=== PATIENT | male | born 1965 | race Caucasian/White ===

== ENCOUNTER 2017-12-28 18:31 | Inpatient (IN) | payer OTHER ==
[2017-12-28 19:49] LABS: ADD MAN DIFF? NO
[2017-12-28] MEDS: morphine 4 MG/ML VIAL IV (19:50)
[2017-12-28 19:51] LABS: BASOPHIL # 0.1 10^3/ul (0.0-0.1); BASOPHILS % 0.7 % (0.0-2.0); EOSINOPHILS # 0.3 10^3/ul (0.0-0.5); EOSINOPHILS % 2.9 % (0.0-7.0); HEMATOCRIT 30.4 % (42.0-52.0); HEMOGLOBIN 10.3 g/dl (14.0-18.0); LYMPHOCYTES # 2.1 10^3/ul (0.8-2.9); LYMPHOCYTES % 24.9 % (15.0-51.0); MEAN CORPUSCULAR HEMOGLOBIN 29.1 pg (29.0-33.0); MEAN CORPUSCULAR HGB CONC 33.9 g/dl (32.0-37.0); MEAN CORPUSCULAR VOLUME 85.9 fl (82.0-101.0); MEAN PLATELET VOLUME 11.4 fl (7.4-10.4); MONOCYTE # 0.7 10^3/ul (0.3-0.9); MONOCYTES % 8.4 % (0.0-11.0); NEUTROPHIL # 5.3 10^3/ul (1.6-7.5); NEUTROPHILS % 62.6 % (39.0-77.0); PLATELET COUNT 337 10^3/UL (140-415); RED BLOOD COUNT 3.54 10^6/ul (4.70-6.10); RED CELL DISTRIBUTION WIDTH 12.3 % (11.5-14.5)
[2017-12-28 19:51] LABS: WHITE BLOOD COUNT 8.5 10^3/ul (4.8-10.8)
[2017-12-28 19:55] LABS: ADD UMIC YES; UR ASCORBIC ACID NEGATIVE (NEGATIVE); UR BACTERIA FEW /HPF (NONE SEEN); UR BILIRUBIN (Dip) NEGATIVE (NEGATIVE); UR BLOOD (Dip) 1+ mg/dL (NEGATIVE); UR CLARITY CLEAR (CLEAR); UR COLOR STRAW (YELLOW); UR GLUCOSE (Dip) 3+ mg/dL (NEGATIVE); UR KETONES (Dip) NEGATIVE (NEGATIVE); UR LEUKOCYTE ESTERASE (Dip) NEGATIVE Leu/ul (NEGATIVE); UR NITRITE (Dip) NEGATIVE (NEGATIVE); UR RBC 1 /HPF (0-5); UR TOTAL PROTEIN (Dip) 3+ mg/dl (NEGATIVE); UR UROBILINOGEN (Dip) NEGATIVE (NEGATIVE); UR WBC 1 /HPF (0-5)
[2017-12-28 20:08] LABS: ALANINE AMINOTRANSFERASE 29 IU/L (13-69); ALBUMIN 3.5 g/dl (3.3-4.9); ALKALINE PHOSPHATASE 112 IU/L (42-121); ANION GAP 13 (8-16); ASPARTATE AMINO TRANSFERASE 25 IU/L (15-46); BILIRUBIN,INDIRECT 0.3 mg/dl (0-1.1); BILIRUBIN,TOTAL 0.3 mg/dl (0.2-1.3); BLOOD UREA NITROGEN 49 mg/dl (7-20); CARBON DIOXIDE 24 mmol/L (21-31); CHLORIDE 99 mmol/L (97-110); CREATININE 4.17 mg/dl (0.61-1.24); POTASSIUM 4.7 mmol/L (3.5-5.1); SODIUM 131 mmol/L (135-144)
[2017-12-28 20:20] LABS: B-TYPE NATRIURETIC PEPTIDE 334 PG/ML (0-125); TROPONIN-I < 0.012 ng/ml (0.000-0.120)
[2017-12-28 20:35] LABS: GLUCOSE 417 mg/dl (70-220)
[2017-12-28] MEDS ORDERED: ACETAMINOPHEN 325 MG TAB PO (22:00)
[2017-12-28] MEDS ORDERED: ONDANSETRON 4 MG INJ IV (22:00)
[2017-12-28] MEDS ORDERED: BISACODYL (EC) 5 MG TAB PO (22:30)
[2017-12-28] MEDS ORDERED: DOCUSATE SODIUM 100 MG CAP PO (22:30)
[2017-12-28] MEDS ORDERED: NACL 0.9% 3 ML SYG IV (22:30)
[2017-12-28] MEDS ORDERED: HYDROCODONE/APAP (5/325) TAB PO (22:30)
[2017-12-28] MEDS ORDERED: DEXTROSE 50% 50 ML SYRINGE IV ×2 (23:30)
[2017-12-28] MEDS ORDERED: GLUCOSE GEL 15 GRAM TUBE PO ×2 (23:30)
[2017-12-28] MEDS ORDERED: GLUCAGON 1 MG INJ IM (23:30)
[2017-12-28] MEDS ORDERED: GLUCOSE GEL 15 GRAM TUBE BUCCAL (23:30)
[2017-12-28] MEDS: FUROSEMIDE 40 MG INJ IV (23:33)
[2017-12-28] MEDS: INSULIN GLARGINE [LANTus] (100 UNITS/ML) SYG SC (23:51)
[2017-12-28] MEDS: INSULIN ASPART [NOVOLOG] 3 ML PEN SC (23:52)
[2017-12-28] MEDS: hydrALAzine 20 MG INJ IV (23:53)
[2017-12-29 00:06] LABS: IRON 52 ug/dl (35-150)
[2017-12-29 00:16] LABS: % IRON SATURATION 20 % SAT (22-52); TOTAL IRON BINDING CAPACITY 263 ug/dl (241-421)
[2017-12-29] MEDS: hydrALAzine 20 MG INJ IV ×2 (01:00→07:57)
[2017-12-29] MEDS: ACCU-CHEK XX (01:53)
[2017-12-29] MEDS: SOD CHLORIDE 0.9% 1,000 ML IV ×3 (02:32→20:02)
[2017-12-29 02:38] LABS: OSMOLALITY 306 mOsm/kg (280-295)
[2017-12-29 02:56] LABS: AMYLASE 83 U/L (11-123)
[2017-12-29 02:56] LABS: LIPASE 130 U/L (23-300)
[2017-12-29 02:59] LABS: SODIUM,URINE RANDOM 80 mmol/L (30-90)
[2017-12-29 03:01] LABS: CREATININE,URINE RANDOM 58.01 mg/dl (20-370)
[2017-12-29 03:14] LABS: PROTEIN/CREAT RATIO 7.48 RATIO
[2017-12-29 03:32] LABS: OSMOLALITY,URINE 380 mOsm/kg (250-1200)
[2017-12-29 06:12] LABS: ADD MAN DIFF? NO; BASOPHILS % 0.4 % (0.0-2.0); EOSINOPHILS # 0.1 10^3/ul (0.0-0.5); EOSINOPHILS % 1.3 % (0.0-7.0); HEMOGLOBIN 9.7 g/dl (14.0-18.0); LYMPHOCYTES # 1.5 10^3/ul (0.8-2.9); LYMPHOCYTES % 16.9 % (15.0-51.0); MEAN CORPUSCULAR HEMOGLOBIN 28.5 pg (29.0-33.0); MEAN CORPUSCULAR HGB CONC 33.4 g/dl (32.0-37.0); MEAN CORPUSCULAR VOLUME 85.3 fl (82.0-101.0); MEAN PLATELET VOLUME 10.9 fl (7.4-10.4); MONOCYTE # 0.5 10^3/ul (0.3-0.9); MONOCYTES % 6.1 % (0.0-11.0); NEUTROPHIL # 6.7 10^3/ul (1.6-7.5); NEUTROPHILS % 74.9 % (39.0-77.0); PLATELET COUNT 302 10^3/UL (140-415); RED CELL DISTRIBUTION WIDTH 12.5 % (11.5-14.5)
[2017-12-29 06:12] LABS: WHITE BLOOD COUNT 8.9 10^3/ul (4.8-10.8)
[2017-12-29 06:40] LABS: HEMOGLOBIN A1C 13.5 % (0-5.9)
[2017-12-29 06:49] LABS: CARBON DIOXIDE 28 mmol/L (21-31); CHLORIDE 102 mmol/L (97-110); POTASSIUM 4.7 mmol/L (3.5-5.1); SODIUM 135 mmol/L (135-144)
[2017-12-29 06:50] LABS: ALANINE AMINOTRANSFERASE 24 IU/L (13-69); ALBUMIN 2.9 g/dl (3.3-4.9); ALBUMIN/GLOBULIN RATIO 0.85; ALKALINE PHOSPHATASE 93 IU/L (42-121); ANION GAP 10 (8-16); ASPARTATE AMINO TRANSFERASE 19 IU/L (15-46); BILIRUBIN,INDIRECT 0.3 mg/dl (0-1.1); BILIRUBIN,TOTAL 0.3 mg/dl (0.2-1.3); BLOOD UREA NITROGEN 47 mg/dl (7-20); CHOLESTEROL 176 mg/dl (100-200); CREATININE 4.08 mg/dl (0.61-1.24); GLUCOSE 234 mg/dl (70-220); HDL CHOLESTEROL 43 mg/dl (28-71); LDL CHOLESTEROL,CALCULATED 103 mg/dl; MAGNESIUM 2.2 mg/dl (1.7-2.5); PHOSPHORUS 3.9 mg/dl (2.5-4.9); TOTAL PROTEIN 6.3 g/dl (6.1-8.1); TRIGLYCERIDES 152 mg/dl (0-149)
[2017-12-29] MEDS ORDERED: HYDROCODONE/APAP (5/325) TAB PO (07:00)
[2017-12-29] MEDS: INSULIN ASPART [NOVOLOG] 3 ML PEN SC ×6 (08:00→21:00)
[2017-12-29] MEDS: AMLODIPINE 2.5 MG TAB PO (08:06)
[2017-12-29] MEDS: INSULIN GLARGINE [LANTus] (100 UNITS/ML) SYG SC ×2 (08:19→12:55)
[2017-12-29] MEDS: HEPARIN 5,000 UNIT/0.5 ML VIAL SC ×3 (08:19→21:20)
[2017-12-29 09:30] LABS: HEPATITIS B SURFACE ANTIGEN NEGATIVE (NEGATIVE)
[2017-12-29 09:47] LABS: HEPATITIS C VIRAL ANTIBODY NEGATIVE (NEGATIVE)
[2017-12-29 09:48] LABS: HEPATITIS B SURFACE ANTIBODY NEGATIVE (NEGATIVE)
[2017-12-29] MEDS ORDERED: INSULIN GLARGINE [LANTus] (100 UNITS/ML) SYG SC (12:00)
[2017-12-29] MEDS: ATORVASTATIN 20 MG TAB PO (21:10)
[2017-12-29] MEDS: AMLODIPINE 5 MG TAB PO (21:10)
[2017-12-30] MEDS: ACCU-CHEK XX (01:19)
[2017-12-30] MEDS: SOD CHLORIDE 0.9% 1,000 ML IV ×5 (01:20→22:09)
[2017-12-30] MEDS: hydrALAzine 20 MG INJ IV (01:30)
[2017-12-30] MEDS: HEPARIN 5,000 UNIT/0.5 ML VIAL SC ×3 (05:36→22:50)
[2017-12-30 06:46] LABS: ADD MAN DIFF? NO
[2017-12-30 06:53] LABS: BASOPHIL # 0.1 10^3/ul (0.0-0.1); BASOPHILS % 0.8 % (0.0-2.0); EOSINOPHILS # 0.2 10^3/ul (0.0-0.5); HEMATOCRIT 27.9 % (42.0-52.0); LYMPHOCYTES % 30.6 % (15.0-51.0); MEAN CORPUSCULAR HGB CONC 32.3 g/dl (32.0-37.0); MEAN CORPUSCULAR VOLUME 86.9 fl (82.0-101.0); MEAN PLATELET VOLUME 11.2 fl (7.4-10.4); MONOCYTE # 0.6 10^3/ul (0.3-0.9); MONOCYTES % 8.8 % (0.0-11.0); NEUTROPHIL # 3.7 10^3/ul (1.6-7.5); NEUTROPHILS % 56.3 % (39.0-77.0); PLATELET COUNT 304 10^3/UL (140-415); RED BLOOD COUNT 3.21 10^6/ul (4.70-6.10); RED CELL DISTRIBUTION WIDTH 12.9 % (11.5-14.5)
[2017-12-30 06:53] LABS: WHITE BLOOD COUNT 6.6 10^3/ul (4.8-10.8)
[2017-12-30 07:19] LABS: ANION GAP 9 (8-16); BLOOD UREA NITROGEN 47 mg/dl (7-20); CALCIUM 8.1 mg/dl (8.4-10.2); CARBON DIOXIDE 23 mmol/L (21-31); CHLORIDE 109 mmol/L (97-110); CREATININE 3.71 mg/dl (0.61-1.24); GLUCOSE 129 mg/dl (70-220); POTASSIUM 4.4 mmol/L (3.5-5.1); SODIUM 137 mmol/L (135-144)
[2017-12-30 07:21] LABS: PHOSPHORUS 4.3 mg/dl (2.5-4.9)
[2017-12-30 07:23] LABS: LIPASE 137 U/L (23-300)
[2017-12-30 07:23] LABS: AMYLASE 72 U/L (11-123)
[2017-12-30] MEDS: INSULIN ASPART [NOVOLOG] 3 ML PEN SC ×7 (08:00→22:30)
[2017-12-30] MEDS: AMLODIPINE 5 MG TAB PO ×2 (08:02→22:29)
[2017-12-30] MEDS: INSULIN GLARGINE [LANTus] (100 UNITS/ML) SYG SC (08:05)
[2017-12-30] MEDS: ACETAMINOPHEN 325 MG TAB PO (22:15)
[2017-12-30] MEDS: ATORVASTATIN 20 MG TAB PO (22:29)
[2017-12-31] MEDS: ACCU-CHEK XX (02:00)
[2017-12-31] MEDS: HEPARIN 5,000 UNIT/0.5 ML VIAL SC ×3 (07:28→22:13)
[2017-12-31 07:41] LABS: ADD MAN DIFF? NO
[2017-12-31 07:51] LABS: BASOPHILS % 0.4 % (0.0-2.0); EOSINOPHILS # 0.2 10^3/ul (0.0-0.5); HEMATOCRIT 27.3 % (42.0-52.0); HEMOGLOBIN 9.1 g/dl (14.0-18.0); LYMPHOCYTES # 1.7 10^3/ul (0.8-2.9); LYMPHOCYTES % 30.7 % (15.0-51.0); MEAN CORPUSCULAR HEMOGLOBIN 29.3 pg (29.0-33.0); MEAN CORPUSCULAR HGB CONC 33.3 g/dl (32.0-37.0); MEAN CORPUSCULAR VOLUME 87.8 fl (82.0-101.0); MEAN PLATELET VOLUME 10.9 fl (7.4-10.4); MONOCYTE # 0.6 10^3/ul (0.3-0.9); MONOCYTES % 10.1 % (0.0-11.0); NEUTROPHILS % 54.4 % (39.0-77.0); PLATELET COUNT 301 10^3/UL (140-415); RED BLOOD COUNT 3.11 10^6/ul (4.70-6.10); RED CELL DISTRIBUTION WIDTH 12.7 % (11.5-14.5)
[2017-12-31 07:51] LABS: WHITE BLOOD COUNT 5.5 10^3/ul (4.8-10.8)
[2017-12-31] MEDS: INSULIN ASPART [NOVOLOG] 3 ML PEN SC ×7 (08:00→20:32)
[2017-12-31 08:24] LABS: ANION GAP 9 (8-16); BLOOD UREA NITROGEN 43 mg/dl (7-20); CALCIUM 8.2 mg/dl (8.4-10.2); CARBON DIOXIDE 22 mmol/L (21-31); CHLORIDE 112 mmol/L (97-110); CREATININE 3.38 mg/dl (0.61-1.24); GLUCOSE 98 mg/dl (70-220); SODIUM 139 mmol/L (135-144)
[2017-12-31] MEDS: INSULIN GLARGINE [LANTus] (100 UNITS/ML) SYG SC (08:37)
[2017-12-31] MEDS: AMLODIPINE 5 MG TAB PO ×2 (08:39→20:30)
[2017-12-31] MEDS: SOD CHLORIDE 0.9% 1,000 ML IV ×3 (08:39→22:14)
[2017-12-31 13:18] LABS: ANA SCREEN NEGATIVE (NEGATIVE)
[2017-12-31 17:08] LABS: CREATININE, RANDOM URINE 60 mg/dL (20-370); MICROALBUMIN 217.5 mg/dL; MICROALBUMIN/CREATININE RATIO 3625 (<30)
[2017-12-31 18:31] LABS: PTH CALCIUM 8.9 mg/dL (8.6-10.3)
[2017-12-31] MEDS: ATORVASTATIN 20 MG TAB PO (20:30)
[2018-01-01] MEDS: ACCU-CHEK XX (02:00)
[2018-01-01] MEDS: SOD CHLORIDE 0.9% 1,000 ML IV (03:12)
[2018-01-01] MEDS: HEPARIN 5,000 UNIT/0.5 ML VIAL SC ×3 (05:50→20:48)
[2018-01-01 07:04] LABS: ADD MAN DIFF? NO
[2018-01-01 07:15] LABS: BASOPHILS % 0.6 % (0.0-2.0); EOSINOPHILS # 0.2 10^3/ul (0.0-0.5); EOSINOPHILS % 3.4 % (0.0-7.0); HEMATOCRIT 28.7 % (42.0-52.0); HEMOGLOBIN 9.3 g/dl (14.0-18.0); MEAN CORPUSCULAR HGB CONC 32.4 g/dl (32.0-37.0); MEAN CORPUSCULAR VOLUME 89.4 fl (82.0-101.0); MEAN PLATELET VOLUME 11.1 fl (7.4-10.4); MONOCYTE # 0.6 10^3/ul (0.3-0.9); MONOCYTES % 8.9 % (0.0-11.0); NEUTROPHIL # 3.7 10^3/ul (1.6-7.5); NEUTROPHILS % 56.6 % (39.0-77.0); PLATELET COUNT 331 10^3/UL (140-415); RED BLOOD COUNT 3.21 10^6/ul (4.70-6.10); RED CELL DISTRIBUTION WIDTH 12.9 % (11.5-14.5)
[2018-01-01 07:15] LABS: WHITE BLOOD COUNT 6.5 10^3/ul (4.8-10.8)
[2018-01-01 07:54] LABS: ANION GAP 9 (8-16); BLOOD UREA NITROGEN 39 mg/dl (7-20); CALCIUM 8.2 mg/dl (8.4-10.2); CARBON DIOXIDE 23 mmol/L (21-31); CHLORIDE 112 mmol/L (97-110); CREATININE 3.11 mg/dl (0.61-1.24); GLUCOSE 92 mg/dl (70-220); POTASSIUM 4.7 mmol/L (3.5-5.1); SODIUM 139 mmol/L (135-144)
[2018-01-01] MEDS: INSULIN ASPART [NOVOLOG] 3 ML PEN SC ×7 (08:00→20:49)
[2018-01-01] MEDS: AMLODIPINE 5 MG TAB PO ×2 (08:08→20:49)
[2018-01-01] MEDS: INSULIN GLARGINE [LANTus] (100 UNITS/ML) SYG SC (08:11)
[2018-01-01 08:28] LABS: PTH INTACT 30 pg/mL (14-64)
[2018-01-01] MEDS: ATORVASTATIN 20 MG TAB PO (20:48)
[2018-01-02] MEDS: ACCU-CHEK XX (01:55)
[2018-01-02] MEDS: HEPARIN 5,000 UNIT/0.5 ML VIAL SC ×2 (06:33→13:09)
[2018-01-02 06:48] LABS: ADD MAN DIFF? NO
[2018-01-02 06:52] LABS: BASOPHILS % 0.5 % (0.0-2.0); EOSINOPHILS # 0.2 10^3/ul (0.0-0.5); EOSINOPHILS % 2.5 % (0.0-7.0); HEMATOCRIT 25.9 % (42.0-52.0); HEMOGLOBIN 8.5 g/dl (14.0-18.0); LYMPHOCYTES # 1.5 10^3/ul (0.8-2.9); LYMPHOCYTES % 25.6 % (15.0-51.0); MEAN CORPUSCULAR HEMOGLOBIN 29.3 pg (29.0-33.0); MEAN CORPUSCULAR HGB CONC 32.8 g/dl (32.0-37.0); MEAN CORPUSCULAR VOLUME 89.3 fl (82.0-101.0); MEAN PLATELET VOLUME 11.5 fl (7.4-10.4); MONOCYTE # 0.5 10^3/ul (0.3-0.9); MONOCYTES % 8.5 % (0.0-11.0); NEUTROPHIL # 3.7 10^3/ul (1.6-7.5); NEUTROPHILS % 62.6 % (39.0-77.0); PLATELET COUNT 305 10^3/UL (140-415)
[2018-01-02 07:19] LABS: ANION GAP 8 (8-16); BLOOD UREA NITROGEN 39 mg/dl (7-20); CARBON DIOXIDE 22 mmol/L (21-31); CHLORIDE 114 mmol/L (97-110); CREATININE 3.14 mg/dl (0.61-1.24); GLUCOSE 66 mg/dl (70-220); POTASSIUM 4.5 mmol/L (3.5-5.1); SODIUM 139 mmol/L (135-144)
[2018-01-02] MEDS: INSULIN ASPART [NOVOLOG] 3 ML PEN SC ×4 (08:00→12:53)
[2018-01-02] MEDS: AMLODIPINE 5 MG TAB PO (08:03)
[2018-01-02] MEDS: INSULIN GLARGINE [LANTus] (100 UNITS/ML) SYG SC (08:12)
[2018-01-02] MEDS ORDERED: CLONIDINE 0.1 MG/24 HR PATCH TRANSDERM (13:30)
== END 2018-01-02 15:45 | disposition home or self-care (01) | DRG 682 ==
LOC: 2NE 22:00 → E/R 18:31
DX: I12.9 Hypertensive chronic kidney disease with stage 1 through stage 4 chronic kidney disease, or unspecified chronic kidney disease (principal); K85.90 Acute pancreatitis without necrosis or infection, unspecified; N17.9 Acute kidney failure, unspecified; E87.1 Hypo-osmolality and hyponatremia; N18.3 Chronic kidney disease, stage 3 (moderate); R60.9 Edema, unspecified; I10 Essential (primary) hypertension; E11.65 Type 2 diabetes mellitus with hyperglycemia; D63.1 Anemia in chronic kidney disease; E11.21 Type 2 diabetes mellitus with diabetic nephropathy; E78.5 Hyperlipidemia, unspecified; R00.0 Tachycardia, unspecified; M54.6 Pain in thoracic spine
CPT/HCPCS: 36415; 71045; 72100; 74176; 76775; 80048; 80053; 80061; 81001; 81003; 82043; 82150; 82306; 82570; 82652; 82728; 82962; 83036; 83540; 83690; 83735; 83880; 83930; 83935; 83970; 84100; 84300; 84484; 85025; 86038; 86706; 86803; 87340; 93005; 93306; 93970; 96374; 99291-25

== ENCOUNTER 2018-04-09 15:51 | Inpatient (IN) | payer OTHER ==
[2018-04-09] MEDS ORDERED: hydrALAzine 20 MG INJ IV (20:00)
[2018-04-09 20:07] LABS: ADD MAN DIFF? NO
[2018-04-09 20:17] LABS: BASOPHIL # 0.1 10^3/ul (0.0-0.1); BASOPHILS % 0.7 % (0.0-2.0); EOSINOPHILS # 0.3 10^3/ul (0.0-0.5); EOSINOPHILS % 3.1 % (0.0-7.0); HEMATOCRIT 28.3 % (42.0-52.0); HEMOGLOBIN 9.5 g/dl (14.0-18.0); LYMPHOCYTES # 2.6 10^3/ul (0.8-2.9); MEAN CORPUSCULAR HEMOGLOBIN 28.8 pg (29.0-33.0); MEAN CORPUSCULAR HGB CONC 33.6 g/dl (32.0-37.0); MEAN CORPUSCULAR VOLUME 85.8 fl (82.0-101.0); MEAN PLATELET VOLUME 10.5 fl (7.4-10.4); MONOCYTE # 0.8 10^3/ul (0.3-0.9); MONOCYTES % 9.2 % (0.0-11.0); NEUTROPHIL # 5.2 10^3/ul (1.6-7.5); NEUTROPHILS % 57.8 % (39.0-77.0); PLATELET COUNT 314 10^3/UL (140-415); RED CELL DISTRIBUTION WIDTH 13.7 % (11.5-14.5)
[2018-04-09 20:33] LABS: ALANINE AMINOTRANSFERASE 36 IU/L (13-69); ALBUMIN 3.8 g/dl (3.3-4.9); ALBUMIN/GLOBULIN RATIO 1.05; ALKALINE PHOSPHATASE 79 IU/L (42-121); ANION GAP 10 (5-13); ASPARTATE AMINO TRANSFERASE 39 IU/L (15-46); BILIRUBIN,INDIRECT 0.3 mg/dl (0-1.1); BILIRUBIN,TOTAL 0.3 mg/dl (0.2-1.3); BLOOD UREA NITROGEN 48 mg/dl (7-20); CALCIUM 8.9 mg/dl (8.4-10.2); CARBON DIOXIDE 21 mmol/L (21-31); CHLORIDE 110 mmol/L (97-110); Estimated GFR 16 mL/min (>60); GLUCOSE 118 mg/dl (70-220); LIPASE 94 U/L (23-300); POTASSIUM 4.6 mmol/L (3.5-5.1); SODIUM 141 mmol/L (135-144); TOTAL PROTEIN 7.4 g/dl (6.1-8.1)
[2018-04-09 20:39] LABS: B-TYPE NATRIURETIC PEPTIDE 2110 PG/ML (0-125)
[2018-04-09 20:46] LABS: TROPONIN-I < 0.012 ng/ml (0.000-0.120)
[2018-04-09] MEDS: hydrALAzine 20 MG INJ IV (20:57)
[2018-04-09] MEDS: FUROSEMIDE 40 MG INJ IV (20:58)
[2018-04-09] MEDS: CEFTRIAXONE 1 GM/50 ML (PMX) 50 ML IVPB (20:58)
[2018-04-09] MEDS: AZITHROMYCIN 500MG/NS (PMX) 250 ML IVPB (20:58)
[2018-04-09 21:26] LABS: ADD UMIC YES; UR ASCORBIC ACID NEGATIVE (NEGATIVE); UR BILIRUBIN (Dip) NEGATIVE (NEGATIVE); UR BLOOD (Dip) 1+ mg/dL (NEGATIVE); UR CLARITY SLIGHTLY CLOUDY (CLEAR); UR COLOR YELLOW (YELLOW); UR GLUCOSE (Dip) 2+ mg/dL (NEGATIVE); UR KETONES (Dip) NEGATIVE (NEGATIVE); UR LEUKOCYTE ESTERASE (Dip) NEGATIVE Leu/ul (NEGATIVE); UR NITRITE (Dip) NEGATIVE (NEGATIVE); UR RBC 2 /HPF (0-5); UR SPECIFIC GRAVITY (Dip) 1.015 (1.003-1.030); UR TOTAL PROTEIN (Dip) 3+ mg/dl (NEGATIVE); UR UROBILINOGEN (Dip) NEGATIVE (NEGATIVE); UR WBC 1 /HPF (0-5)
[2018-04-09] MEDS: ASPIRIN 81 MG TAB PO (21:41)
[2018-04-10] MEDS ORDERED: ALBUTEROL/IPRATROPIUM (NEB) 3 ML AMP HHN (01:30)
[2018-04-10] MEDS ORDERED: NACL 0.9% 3 ML SYG IV (01:30)
[2018-04-10] MEDS ORDERED: ONDANSETRON 4 MG INJ IV (01:30)
[2018-04-10] MEDS ORDERED: GLUCOSE GEL 15 GRAM TUBE PO (02:00)
[2018-04-10] MEDS ORDERED: GLUCAGON 1 MG INJ IM (02:00)
[2018-04-10] MEDS ORDERED: DEXTROSE 50% 50 ML SYRINGE IV ×2 (02:00)
[2018-04-10] MEDS ORDERED: GLUCOSE GEL 15 GRAM TUBE BUCCAL (02:00)
[2018-04-10] MEDS: ACCU-CHEK XX (02:32)
[2018-04-10] MEDS: FUROSEMIDE 40 MG TAB PO (05:48)
[2018-04-10 06:48] LABS: ADD MAN DIFF? NO
[2018-04-10 06:55] LABS: BASOPHILS % 0.5 % (0.0-2.0); EOSINOPHILS # 0.2 10^3/ul (0.0-0.5); EOSINOPHILS % 3.5 % (0.0-7.0); HEMATOCRIT 23.6 % (42.0-52.0); HEMOGLOBIN 7.8 g/dl (14.0-18.0); LYMPHOCYTES # 1.5 10^3/ul (0.8-2.9); MEAN CORPUSCULAR HEMOGLOBIN 28.8 pg (29.0-33.0); MEAN CORPUSCULAR HGB CONC 33.1 g/dl (32.0-37.0); MEAN CORPUSCULAR VOLUME 87.1 fl (82.0-101.0); MEAN PLATELET VOLUME 10.8 fl (7.4-10.4); MONOCYTE # 0.7 10^3/ul (0.3-0.9); MONOCYTES % 11.3 % (0.0-11.0); NEUTROPHIL # 3.6 10^3/ul (1.6-7.5); NEUTROPHILS % 59.5 % (39.0-77.0); PLATELET COUNT 251 10^3/UL (140-415); RED BLOOD COUNT 2.71 10^6/ul (4.70-6.10)
[2018-04-10 07:05] LABS: HEMOGLOBIN A1C 6.9 % (0-5.9)
[2018-04-10 07:20] LABS: ALANINE AMINOTRANSFERASE 30 IU/L (13-69); ALBUMIN 2.8 g/dl (3.3-4.9); ALKALINE PHOSPHATASE 60 IU/L (42-121); ANION GAP 6 (5-13); ASPARTATE AMINO TRANSFERASE 28 IU/L (15-46); BILIRUBIN,INDIRECT 0.1 mg/dl (0-1.1); BILIRUBIN,TOTAL 0.1 mg/dl (0.2-1.3); BLOOD UREA NITROGEN 49 mg/dl (7-20); CALCIUM 8.2 mg/dl (8.4-10.2); CARBON DIOXIDE 23 mmol/L (21-31); CHLORIDE 111 mmol/L (97-110); CREATININE 4.05 mg/dl (0.61-1.24); Estimated GFR 16 mL/min (>60); GLUCOSE 173 mg/dl (70-220); POTASSIUM 4.5 mmol/L (3.5-5.1); SODIUM 140 mmol/L (135-144); TOTAL PROTEIN 5.6 g/dl (6.1-8.1)
[2018-04-10] MEDS: INSULIN ASPART [NOVOLOG] 3 ML PEN SC ×4 (07:39→21:00)
[2018-04-10] MEDS: MULTIVIT/CA CARB/B CMPLX/FA TAB PO (08:06)
[2018-04-10] MEDS: FLUDROCORTISONE 0.1 MG TAB PO (08:07)
[2018-04-10] MEDS: AMLODIPINE 5 MG TAB PO (08:07)
[2018-04-10] MEDS: HEPARIN 5,000 UNIT/1 ML VIAL SC ×2 (08:12→21:01)
[2018-04-10] MEDS: BUMETANIDE 1 MG INJ IV (17:18)
[2018-04-10] MEDS: ATORVASTATIN 20 MG TAB PO (20:57)
[2018-04-10] MEDS: INSULIN GLARGINE [LANTus] (100 UNITS/ML) SYG SC (21:02)
[2018-04-10] MEDS: ALBUMIN HUMAN 25% 50 ML IV (21:04)
[2018-04-11] MEDS: ACCU-CHEK XX (02:00)
[2018-04-11] MEDS: BUMETANIDE 1 MG INJ IV ×2 (05:50→17:06)
[2018-04-11 06:02] LABS: ADD MAN DIFF? NO
[2018-04-11 06:10] LABS: WHITE BLOOD COUNT 6.4 10^3/ul (4.8-10.8)
[2018-04-11 06:10] LABS: BASOPHILS % 0.6 % (0.0-2.0); EOSINOPHILS # 0.2 10^3/ul (0.0-0.5); EOSINOPHILS % 3.3 % (0.0-7.0); HEMATOCRIT 22.5 % (42.0-52.0); HEMOGLOBIN 7.7 g/dl (14.0-18.0); LYMPHOCYTES % 30.5 % (15.0-51.0); MEAN CORPUSCULAR HEMOGLOBIN 29.1 pg (29.0-33.0); MEAN CORPUSCULAR HGB CONC 34.2 g/dl (32.0-37.0); MEAN CORPUSCULAR VOLUME 84.9 fl (82.0-101.0); MEAN PLATELET VOLUME 10.8 fl (7.4-10.4); MONOCYTE # 0.7 10^3/ul (0.3-0.9); MONOCYTES % 10.9 % (0.0-11.0); NEUTROPHIL # 3.5 10^3/ul (1.6-7.5); NEUTROPHILS % 54.5 % (39.0-77.0); PLATELET COUNT 241 10^3/UL (140-415); RED BLOOD COUNT 2.65 10^6/ul (4.70-6.10); RED CELL DISTRIBUTION WIDTH 13.7 % (11.5-14.5)
[2018-04-11 06:34] LABS: ANION GAP 7 (5-13); BLOOD UREA NITROGEN 54 mg/dl (7-20); CALCIUM 8.1 mg/dl (8.4-10.2); CARBON DIOXIDE 24 mmol/L (21-31); CHLORIDE 109 mmol/L (97-110); CREATININE 4.03 mg/dl (0.61-1.24); Estimated GFR 16 mL/min (>60); MAGNESIUM 2.3 mg/dl (1.7-2.5); PHOSPHORUS 5.3 mg/dl (2.5-4.9); SODIUM 140 mmol/L (135-144)
[2018-04-11] MEDS: INSULIN ASPART [NOVOLOG] 3 ML PEN SC ×4 (07:55→21:00)
[2018-04-11] MEDS: FLUDROCORTISONE 0.1 MG TAB PO (08:30)
[2018-04-11] MEDS: THIAMINE 100 MG TAB PO (08:30)
[2018-04-11] MEDS: MULTIVIT/CA CARB/B CMPLX/FA TAB PO (08:30)
[2018-04-11] MEDS: ENOXAPARIN 30 MG/0.3 ML SYG SC (08:38)
[2018-04-11] MEDS: ALBUMIN HUMAN 25% 50 ML IV ×2 (08:52→21:52)
[2018-04-11] MEDS: SOD FERRIC GLUC COMPLX 125 MG in SOD CHLORIDE 0.9% 100 ML IVPB (17:53)
[2018-04-11] MEDS: EPOETIN 10000 UNITS/1 ML INJ (ESRD) SC (17:54)
[2018-04-11] MEDS: INSULIN GLARGINE [LANTus] (100 UNITS/ML) SYG SC (21:49)
[2018-04-11] MEDS: ATORVASTATIN 20 MG TAB PO (21:52)
[2018-04-11] MEDS: FAMOTIDINE 20 MG TAB PO (21:52)
[2018-04-12] MEDS: ACCU-CHEK XX (02:00)
[2018-04-12] MEDS: BUMETANIDE 1 MG INJ IV (06:26)
[2018-04-12 07:00] LABS: ADD MAN DIFF? NO
[2018-04-12 07:19] LABS: BASOPHILS % 0.8 % (0.0-2.0); EOSINOPHILS # 0.2 10^3/ul (0.0-0.5); EOSINOPHILS % 3.2 % (0.0-7.0); HEMATOCRIT 22.7 % (42.0-52.0); HEMOGLOBIN 7.6 g/dl (14.0-18.0); LYMPHOCYTES # 1.2 10^3/ul (0.8-2.9); LYMPHOCYTES % 24.1 % (15.0-51.0); MEAN CORPUSCULAR HEMOGLOBIN 28.9 pg (29.0-33.0); MEAN CORPUSCULAR HGB CONC 33.5 g/dl (32.0-37.0); MEAN CORPUSCULAR VOLUME 86.3 fl (82.0-101.0); MEAN PLATELET VOLUME 10.7 fl (7.4-10.4); MONOCYTE # 0.7 10^3/ul (0.3-0.9); MONOCYTES % 13.8 % (0.0-11.0); NEUTROPHIL # 2.8 10^3/ul (1.6-7.5); NEUTROPHILS % 57.7 % (39.0-77.0); PLATELET COUNT 238 10^3/UL (140-415); RED BLOOD COUNT 2.63 10^6/ul (4.70-6.10); RED CELL DISTRIBUTION WIDTH 13.8 % (11.5-14.5)
[2018-04-12 07:19] LABS: WHITE BLOOD COUNT 4.9 10^3/ul (4.8-10.8)
[2018-04-12] MEDS: INSULIN ASPART [NOVOLOG] 3 ML PEN SC ×4 (07:35→20:26)
[2018-04-12 07:47] LABS: ANION GAP 7 (5-13); BLOOD UREA NITROGEN 54 mg/dl (7-20); CARBON DIOXIDE 24 mmol/L (21-31); CHLORIDE 108 mmol/L (97-110); CREATININE 4.12 mg/dl (0.61-1.24); Estimated GFR 15 mL/min (>60); GLUCOSE 91 mg/dl (70-220); POTASSIUM 4.1 mmol/L (3.5-5.1); SODIUM 139 mmol/L (135-144)
[2018-04-12] MEDS: THIAMINE 100 MG TAB PO (08:20)
[2018-04-12] MEDS: FLUDROCORTISONE 0.1 MG TAB PO (08:20)
[2018-04-12] MEDS: MULTIVIT/CA CARB/B CMPLX/FA TAB PO (08:21)
[2018-04-12] MEDS: ALBUMIN HUMAN 25% 50 ML IV (08:22)
[2018-04-12] MEDS: ENOXAPARIN 30 MG/0.3 ML SYG SC (08:27)
[2018-04-12] MEDS ORDERED: EPOETIN ALFA (NESRD) 3,000 UNITS/ML VIAL SC (11:30)
[2018-04-12] MEDS: SOD FERRIC GLUC COMPLX 125 MG in SOD CHLORIDE 0.9% 100 ML IVPB (13:49)
[2018-04-12] MEDS: EPOETIN 10000 UNITS/1 ML INJ (ESRD) SC (13:51)
[2018-04-12] MEDS: BUMETANIDE 1 MG TAB PO (17:29)
[2018-04-12] MEDS ORDERED: hydrALAzine 20 MG INJ (20:20)
[2018-04-12] MEDS: ATORVASTATIN 20 MG TAB PO (20:24)
[2018-04-12] MEDS: FAMOTIDINE 20 MG TAB PO (20:25)
[2018-04-12] MEDS: hydrALAzine 20 MG INJ IV (20:26)
[2018-04-12] MEDS: INSULIN GLARGINE [LANTus] (100 UNITS/ML) SYG SC (21:00)
[2018-04-13] MEDS: ACCU-CHEK XX (01:41)
[2018-04-13] MEDS: BUMETANIDE 1 MG TAB PO ×2 (05:38→18:13)
[2018-04-13] MEDS: INSULIN ASPART [NOVOLOG] 3 ML PEN SC ×4 (07:44→21:32)
[2018-04-13] MEDS: THIAMINE 100 MG TAB PO (08:26)
[2018-04-13] MEDS: MULTIVIT/CA CARB/B CMPLX/FA TAB PO (08:26)
[2018-04-13] MEDS: FLUDROCORTISONE 0.1 MG TAB PO (08:27)
[2018-04-13] MEDS: ENOXAPARIN 30 MG/0.3 ML SYG SC (08:31)
[2018-04-13] MEDS: SOD FERRIC GLUC COMPLX 125 MG in SOD CHLORIDE 0.9% 100 ML IVPB (14:14)
[2018-04-13] MEDS: LORATADINE 10 MG TAB PO (18:13)
[2018-04-13] MEDS: ATORVASTATIN 20 MG TAB PO (20:44)
[2018-04-13] MEDS: FAMOTIDINE 20 MG TAB PO (20:45)
[2018-04-13] MEDS: INSULIN GLARGINE [LANTus] (100 UNITS/ML) SYG SC (21:56)
[2018-04-13] MEDS ORDERED: MAGNESIUM HYDROXIDE 30ML CUP PO (23:30)
[2018-04-14] MEDS: MAGNESIUM HYDROXIDE 30ML CUP PO (00:14)
[2018-04-14] MEDS: ACCU-CHEK XX (02:11)
[2018-04-14] MEDS: BUMETANIDE 1 MG TAB PO ×2 (05:32→17:10)
[2018-04-14 05:57] LABS: ADD MAN DIFF? NO
[2018-04-14 06:00] LABS: WHITE BLOOD COUNT 6.4 10^3/ul (4.8-10.8)
[2018-04-14 06:00] LABS: BASOPHIL # 0.1 10^3/ul (0.0-0.1); BASOPHILS % 0.8 % (0.0-2.0); EOSINOPHILS # 0.2 10^3/ul (0.0-0.5); EOSINOPHILS % 2.8 % (0.0-7.0); HEMATOCRIT 23.1 % (42.0-52.0); HEMOGLOBIN 7.9 g/dl (14.0-18.0); LYMPHOCYTES # 1.6 10^3/ul (0.8-2.9); LYMPHOCYTES % 24.3 % (15.0-51.0); MEAN CORPUSCULAR HEMOGLOBIN 29.3 pg (29.0-33.0); MEAN CORPUSCULAR HGB CONC 34.2 g/dl (32.0-37.0); MEAN CORPUSCULAR VOLUME 85.6 fl (82.0-101.0); MEAN PLATELET VOLUME 10.5 fl (7.4-10.4); MONOCYTES % 15.1 % (0.0-11.0); NEUTROPHIL # 3.6 10^3/ul (1.6-7.5); NEUTROPHILS % 55.9 % (39.0-77.0); NUCLEATED RED BLOOD CELLS% 0.6 /100WBC (0.0-0.0); PLATELET COUNT 268 10^3/UL (140-415); RED CELL DISTRIBUTION WIDTH 14.1 % (11.5-14.5)
[2018-04-14 06:55] LABS: ANION GAP 8 (5-13); BLOOD UREA NITROGEN 56 mg/dl (7-20); CARBON DIOXIDE 27 mmol/L (21-31); CHLORIDE 106 mmol/L (97-110); CREATININE 4.47 mg/dl (0.61-1.24); Estimated GFR 14 mL/min (>60); POTASSIUM 3.7 mmol/L (3.5-5.1); SODIUM 141 mmol/L (135-144)
[2018-04-14 07:01] LABS: GLUCOSE 43 mg/dl (70-220)
[2018-04-14] MEDS: GLUCOSE GEL 15 GRAM TUBE PO (07:11)
[2018-04-14] MEDS: INSULIN ASPART [NOVOLOG] 3 ML PEN SC ×4 (07:55→20:49)
[2018-04-14] MEDS: THIAMINE 100 MG TAB PO (08:06)
[2018-04-14] MEDS: LORATADINE 10 MG TAB PO (08:07)
[2018-04-14] MEDS: MULTIVIT/CA CARB/B CMPLX/FA TAB PO (08:07)
[2018-04-14] MEDS: FLUDROCORTISONE 0.1 MG TAB PO (08:07)
[2018-04-14] MEDS: ENOXAPARIN 30 MG/0.3 ML SYG SC (08:12)
[2018-04-14] MEDS: ATORVASTATIN 20 MG TAB PO (20:37)
[2018-04-14] MEDS: FAMOTIDINE 20 MG TAB PO (20:37)
[2018-04-14] MEDS: INSULIN GLARGINE [LANTus] (100 UNITS/ML) SYG SC (20:50)
[2018-04-15] MEDS: ACCU-CHEK XX (02:00)
[2018-04-15] MEDS: hydrALAzine 20 MG INJ IV ×3 (04:15→22:16)
[2018-04-15] MEDS: BUMETANIDE 1 MG TAB PO ×2 (05:55→17:16)
[2018-04-15 07:05] LABS: ADD MAN DIFF? NO
[2018-04-15 07:10] LABS: WHITE BLOOD COUNT 7.6 10^3/ul (4.8-10.8)
[2018-04-15 07:10] LABS: BASOPHIL # 0.1 10^3/ul (0.0-0.1); BASOPHILS % 0.7 % (0.0-2.0); EOSINOPHILS # 0.2 10^3/ul (0.0-0.5); EOSINOPHILS % 2.6 % (0.0-7.0); HEMATOCRIT 23.2 % (42.0-52.0); HEMOGLOBIN 7.8 g/dl (14.0-18.0); LYMPHOCYTES # 1.4 10^3/ul (0.8-2.9); MEAN CORPUSCULAR HEMOGLOBIN 28.9 pg (29.0-33.0); MEAN CORPUSCULAR HGB CONC 33.6 g/dl (32.0-37.0); MEAN CORPUSCULAR VOLUME 85.9 fl (82.0-101.0); MEAN PLATELET VOLUME 10.9 fl (7.4-10.4); MONOCYTE # 0.9 10^3/ul (0.3-0.9); MONOCYTES % 11.3 % (0.0-11.0); NEUTROPHIL # 4.9 10^3/ul (1.6-7.5); NEUTROPHILS % 65.2 % (39.0-77.0); NUCLEATED RED BLOOD CELLS # 0.1 10^3/ul (0.0-0.0); NUCLEATED RED BLOOD CELLS% 1.3 /100WBC (0.0-0.0); PLATELET COUNT 286 10^3/UL (140-415); RED CELL DISTRIBUTION WIDTH 14.2 % (11.5-14.5)
[2018-04-15 07:47] LABS: PHOSPHORUS 5.2 mg/dl (2.5-4.9)
[2018-04-15] MEDS: INSULIN ASPART [NOVOLOG] 3 ML PEN SC ×4 (07:49→20:30)
[2018-04-15 07:51] LABS: ANION GAP 11 (5-13); BLOOD UREA NITROGEN 52 mg/dl (7-20); CARBON DIOXIDE 25 mmol/L (21-31); CHLORIDE 103 mmol/L (97-110); CREATININE 4.49 mg/dl (0.61-1.24); Estimated GFR 14 mL/min (>60); GLUCOSE 74 mg/dl (70-220); POTASSIUM 3.6 mmol/L (3.5-5.1); SODIUM 139 mmol/L (135-144)
[2018-04-15] MEDS: THIAMINE 100 MG TAB PO (08:36)
[2018-04-15] MEDS: FLUDROCORTISONE 0.1 MG TAB PO (08:36)
[2018-04-15] MEDS: LORATADINE 10 MG TAB PO (08:36)
[2018-04-15] MEDS: MULTIVIT/CA CARB/B CMPLX/FA TAB PO (08:36)
[2018-04-15] MEDS: ENOXAPARIN 30 MG/0.3 ML SYG SC (09:27)
[2018-04-15] MEDS: ACETAMINOPHEN 325 MG TAB PO (16:38)
[2018-04-15] MEDS: HYDROCODONE/APAP (5/325) TAB PO (18:08)
[2018-04-15] MEDS: ATORVASTATIN 20 MG TAB PO (20:16)
[2018-04-15] MEDS: FAMOTIDINE 20 MG TAB PO (20:17)
[2018-04-15] MEDS: INSULIN GLARGINE [LANTus] (100 UNITS/ML) SYG SC (20:21)
[2018-04-15] MEDS: SALINE 0.65% 45 ML NAS SPRAY NASAL (21:04)
[2018-04-16] MEDS: ACCU-CHEK XX (02:00)
[2018-04-16] MEDS: BUMETANIDE 1 MG TAB PO (05:26)
[2018-04-16 05:56] LABS: ADD MAN DIFF? NO
[2018-04-16 05:59] LABS: WHITE BLOOD COUNT 6.9 10^3/ul (4.8-10.8)
[2018-04-16 05:59] LABS: BASOPHILS % 0.4 % (0.0-2.0); EOSINOPHILS # 0.2 10^3/ul (0.0-0.5); EOSINOPHILS % 3.3 % (0.0-7.0); HEMATOCRIT 26.1 % (42.0-52.0); HEMOGLOBIN 8.5 g/dl (14.0-18.0); LYMPHOCYTES # 1.4 10^3/ul (0.8-2.9); LYMPHOCYTES % 20.5 % (15.0-51.0); MEAN CORPUSCULAR HEMOGLOBIN 28.9 pg (29.0-33.0); MEAN CORPUSCULAR HGB CONC 32.6 g/dl (32.0-37.0); MEAN CORPUSCULAR VOLUME 88.8 fl (82.0-101.0); MEAN PLATELET VOLUME 10.4 fl (7.4-10.4); MONOCYTE # 0.8 10^3/ul (0.3-0.9); MONOCYTES % 12.1 % (0.0-11.0); NEUTROPHIL # 4.3 10^3/ul (1.6-7.5); NEUTROPHILS % 62.4 % (39.0-77.0); NUCLEATED RED BLOOD CELLS # 0.1 10^3/ul (0.0-0.0); NUCLEATED RED BLOOD CELLS% 0.9 /100WBC (0.0-0.0); PLATELET COUNT 323 10^3/UL (140-415); RED BLOOD COUNT 2.94 10^6/ul (4.70-6.10); RED CELL DISTRIBUTION WIDTH 14.5 % (11.5-14.5)
[2018-04-16 06:36] LABS: MAGNESIUM 2.1 mg/dl (1.7-2.5)
[2018-04-16 06:36] LABS: PHOSPHORUS 5.3 mg/dl (2.5-4.9)
[2018-04-16 06:40] LABS: ANION GAP 10 (5-13); BLOOD UREA NITROGEN 55 mg/dl (7-20); CALCIUM 8.1 mg/dl (8.4-10.2); CARBON DIOXIDE 28 mmol/L (21-31); CHLORIDE 102 mmol/L (97-110); CREATININE 4.94 mg/dl (0.61-1.24); Estimated GFR 12 mL/min (>60); GLUCOSE 149 mg/dl (70-220); POTASSIUM 4.4 mmol/L (3.5-5.1); SODIUM 140 mmol/L (135-144)
[2018-04-16] MEDS: INSULIN ASPART [NOVOLOG] 3 ML PEN SC ×2 (07:55→11:34)
[2018-04-16] MEDS: MULTIVIT/CA CARB/B CMPLX/FA TAB PO (08:17)
[2018-04-16] MEDS: THIAMINE 100 MG TAB PO (08:18)
[2018-04-16] MEDS: LORATADINE 10 MG TAB PO (08:18)
[2018-04-16] MEDS: ENOXAPARIN 30 MG/0.3 ML SYG SC (08:27)
[2018-04-16] MEDS: ASPIRIN (EC) 81 MG TAB PO (11:38)
[2018-04-17 10:41] LABS: PTH INTACT 53 pg/mL (14-64)
== END 2018-04-16 13:40 | disposition home or self-care (01) | DRG 683 ==
LOC: TEL 21:51 → E/R 15:51
DX: I12.9 Hypertensive chronic kidney disease with stage 1 through stage 4 chronic kidney disease, or unspecified chronic kidney disease (principal); N17.9 Acute kidney failure, unspecified; I82.612 Acute embolism and thrombosis of superficial veins of left upper extremity; N18.4 Chronic kidney disease, stage 4 (severe); Z87.891 Personal history of nicotine dependence; E78.5 Hyperlipidemia, unspecified; I25.10 Atherosclerotic heart disease of native coronary artery without angina pectoris; D63.8 Anemia in other chronic diseases classified elsewhere; E88.81 Metabolic syndrome and other insulin resistance; I16.0 Hypertensive urgency; D63.1 Anemia in chronic kidney disease; E11.40 Type 2 diabetes mellitus with diabetic neuropathy, unspecified; E11.21 Type 2 diabetes mellitus with diabetic nephropathy; E11.65 Type 2 diabetes mellitus with hyperglycemia
CPT/HCPCS: 36415; 71045; 80048; 80053; 81001; 82962; 83036; 83690; 83735; 83880; 83970; 84100; 84484; 85025; 87040; 87086; 93005; 93970; 96365; 96368; 96375; 99291-25

== ENCOUNTER 2018-06-22 03:29 | Emergency (ER) | payer OTHER ==
[2018-06-22 04:46] LABS: ADD MAN DIFF? NO
[2018-06-22 04:48] LABS: WHITE BLOOD COUNT 7.2 10^3/ul (4.8-10.8)
[2018-06-22 04:48] LABS: BASOPHILS % 0.6 % (0.0-2.0); EOSINOPHILS # 0.3 10^3/ul (0.0-0.5); EOSINOPHILS % 3.6 % (0.0-7.0); HEMOGLOBIN 8.9 g/dl (14.0-18.0); LYMPHOCYTES # 1.5 10^3/ul (0.8-2.9); LYMPHOCYTES % 21.2 % (15.0-51.0); MEAN CORPUSCULAR HEMOGLOBIN 28.5 pg (29.0-33.0); MEAN CORPUSCULAR VOLUME 86.5 fl (82.0-101.0); MEAN PLATELET VOLUME 11.5 fl (7.4-10.4); MONOCYTE # 0.7 10^3/ul (0.3-0.9); MONOCYTES % 9.5 % (0.0-11.0); NEUTROPHIL # 4.7 10^3/ul (1.6-7.5); NEUTROPHILS % 64.7 % (39.0-77.0); PLATELET COUNT 247 10^3/UL (140-415); RED BLOOD COUNT 3.12 10^6/ul (4.70-6.10); RED CELL DISTRIBUTION WIDTH 13.8 % (11.5-14.5)
[2018-06-22 05:05] LABS: ALANINE AMINOTRANSFERASE 24 IU/L (13-69); ALBUMIN 3.3 g/dl (3.3-4.9); ALKALINE PHOSPHATASE 69 IU/L (42-121); ANION GAP 8 (5-13); ASPARTATE AMINO TRANSFERASE 25 IU/L (15-46); BLOOD UREA NITROGEN 90 mg/dl (7-20); CALCIUM 8.8 mg/dl (8.4-10.2); CARBON DIOXIDE 20 mmol/L (21-31); CHLORIDE 110 mmol/L (97-110); Estimated GFR 7 mL/min (>60); GLUCOSE 160 mg/dl (70-220); LIPASE 303 U/L (23-300); SODIUM 138 mmol/L (135-144); TOTAL PROTEIN 6.3 g/dl (6.1-8.1)
[2018-06-22] MEDS: morphine 10 MG INJ IV (05:21)
[2018-06-22] MEDS: ONDANSETRON 4 MG INJ IV (05:21)
[2018-06-22 06:49] LABS: ADD UMIC YES; UR ASCORBIC ACID NEGATIVE (NEGATIVE); UR BACTERIA FEW /HPF (NONE SEEN); UR BILIRUBIN (Dip) NEGATIVE (NEGATIVE); UR BLOOD (Dip) NEGATIVE (NEGATIVE); UR CLARITY CLEAR (CLEAR); UR COLOR YELLOW (YELLOW); UR GLUCOSE (Dip) 3+ mg/dL (NEGATIVE); UR KETONES (Dip) NEGATIVE (NEGATIVE); UR LEUKOCYTE ESTERASE (Dip) NEGATIVE Leu/ul (NEGATIVE); UR NITRITE (Dip) NEGATIVE (NEGATIVE); UR RBC 3 /HPF (0-5); UR SPECIFIC GRAVITY (Dip) 1.013 (1.003-1.030); UR TOTAL PROTEIN (Dip) 3+ mg/dl (NEGATIVE); UR UROBILINOGEN (Dip) NEGATIVE (NEGATIVE); UR WBC 2 /HPF (0-5)
[2018-06-22] MEDS: NICARDipine HCL 30 MG CAPSULE PO (06:53)
== END 2018-06-22 08:00 | disposition home or self-care (01) ==
LOC: E/R 03:29
DX: R10.9 Unspecified abdominal pain (principal); I12.9 Hypertensive chronic kidney disease with stage 1 through stage 4 chronic kidney disease, or unspecified chronic kidney disease; N18.9 Chronic kidney disease, unspecified; E11.22 Type 2 diabetes mellitus with diabetic chronic kidney disease; Z79.4 Long term (current) use of insulin
CPT/HCPCS: 36415; 71045; 74176; 80053; 81001; 83690; 85025; 93005; 96374; 96375; 99285-25

== ENCOUNTER 2018-06-25 10:24 | Inpatient (IN) | payer OTHER ==
[2018-06-25 11:47] LABS: ADD MAN DIFF? NO
[2018-06-25 11:48] LABS: BASOPHILS % 0.5 % (0.0-2.0); EOSINOPHILS # 0.2 10^3/ul (0.0-0.5); EOSINOPHILS % 2.6 % (0.0-7.0); HEMATOCRIT 27.6 % (42.0-52.0); HEMOGLOBIN 9.2 g/dl (14.0-18.0); LYMPHOCYTES # 1.3 10^3/ul (0.8-2.9); MEAN CORPUSCULAR HGB CONC 33.3 g/dl (32.0-37.0); MEAN CORPUSCULAR VOLUME 87.1 fl (82.0-101.0); MEAN PLATELET VOLUME 11.2 fl (7.4-10.4); MONOCYTE # 0.5 10^3/ul (0.3-0.9); MONOCYTES % 6.5 % (0.0-11.0); NEUTROPHIL # 6.2 10^3/ul (1.6-7.5); PLATELET COUNT 254 10^3/UL (140-415); RED BLOOD COUNT 3.17 10^6/ul (4.70-6.10); RED CELL DISTRIBUTION WIDTH 13.5 % (11.5-14.5)
[2018-06-25 11:48] LABS: WHITE BLOOD COUNT 8.3 10^3/ul (4.8-10.8)
[2018-06-25 12:08] LABS: ANION GAP 7 (5-13); BLOOD UREA NITROGEN 81 mg/dl (7-20); CALCIUM 8.9 mg/dl (8.4-10.2); CARBON DIOXIDE 23 mmol/L (21-31); CHLORIDE 106 mmol/L (97-110); CREATININE 8.18 mg/dl (0.61-1.24); Estimated GFR 7 mL/min (>60); GLUCOSE 238 mg/dl (70-220); POTASSIUM 5.9 mmol/L (3.5-5.1); SODIUM 136 mmol/L (135-144)
[2018-06-25 12:37] LABS: HEPATITIS B SURFACE ANTIGEN NEGATIVE (NEGATIVE)
[2018-06-25 12:55] LABS: HEPATITIS B SURFACE ANTIBODY NEGATIVE (NEGATIVE)
[2018-06-25] MEDS: hydrALAzine 20 MG INJ IV (12:59)
[2018-06-25] MEDS ORDERED: GLUCOSE GEL 15 GRAM TUBE BUCCAL (13:00)
[2018-06-25] MEDS ORDERED: GLUCOSE GEL 15 GRAM TUBE PO ×2 (13:00)
[2018-06-25] MEDS ORDERED: DEXTROSE 50% 50 ML SYRINGE IV ×2 (13:00)
[2018-06-25] MEDS ORDERED: NACL 0.9% 3 ML SYG IV (13:00)
[2018-06-25] MEDS ORDERED: GLUCAGON 1 MG INJ IM (13:00)
[2018-06-25] MEDS: NA POLYST SULFON 15 GM/60 ML BTL PO (13:17)
[2018-06-25] MEDS: ACETAMINOPHEN 500 MG TAB PO (14:01)
[2018-06-25 14:13] LABS: ALANINE AMINOTRANSFERASE 25 IU/L (13-69); ALBUMIN 3.3 g/dl (3.3-4.9); ALKALINE PHOSPHATASE 60 IU/L (42-121); ASPARTATE AMINO TRANSFERASE 26 IU/L (15-46); BILIRUBIN,INDIRECT 0.1 mg/dl (0-1.1); BILIRUBIN,TOTAL 0.1 mg/dl (0.2-1.3); TOTAL PROTEIN 5.9 g/dl (6.1-8.1)
[2018-06-25] MEDS ORDERED: LIDOCAINE 1% (MDV) 20 ML INJ (14:55)
[2018-06-25] MEDS ORDERED: IODIXANOL LOCM 50 ML BTL (14:55)
[2018-06-25] MEDS ORDERED: MIDAZOLAM 1 MG/ML 2 ML INJ (14:55)
[2018-06-25] MEDS ORDERED: HEPARIN 1000 UNITS/ML 10 ML INJ (14:55)
[2018-06-25] MEDS ORDERED: FENTAnyl 50 MCG/ML VIAL (14:56)
[2018-06-25] MEDS: HYDROmorphONE 0.5 MG/0.5 ML SYG IV ×2 (16:58→23:06)
[2018-06-25] MEDS: BUMETANIDE 1 MG TAB PO (17:43)
[2018-06-25] MEDS: INSULIN ASPART [NOVOLOG] 3 ML PEN SC ×3 (18:15→21:00)
[2018-06-25] MEDS: INSULIN GLARGINE [LANTus] (100 UNITS/ML) SYG SC ×2 (20:00→21:27)
[2018-06-25] MEDS: ATORVASTATIN 20 MG TAB PO (20:39)
[2018-06-25] MEDS: HEPARIN 5,000 UNIT/1 ML VIAL SC (20:45)
[2018-06-26] MEDS: HEPARIN 1000 UNITS/ML 10 ML INJ CATHETER ×2 (00:13→16:24)
[2018-06-26] MEDS: LABETALOL HCL 20MG INJ IV (00:35)
[2018-06-26] MEDS: ONDANSETRON 4 MG INJ IV ×2 (01:34→05:36)
[2018-06-26] MEDS: BUMETANIDE 1 MG INJ IV (01:58)
[2018-06-26 05:46] LABS: ADD MAN DIFF? NO
[2018-06-26 05:49] LABS: WHITE BLOOD COUNT 6.4 10^3/ul (4.8-10.8)
[2018-06-26 05:49] LABS: BASOPHILS % 0.5 % (0.0-2.0); EOSINOPHILS # 0.1 10^3/ul (0.0-0.5); EOSINOPHILS % 0.9 % (0.0-7.0); HEMATOCRIT 24.8 % (42.0-52.0); HEMOGLOBIN 8.2 g/dl (14.0-18.0); LYMPHOCYTES # 1.1 10^3/ul (0.8-2.9); LYMPHOCYTES % 16.7 % (15.0-51.0); MEAN CORPUSCULAR HEMOGLOBIN 28.7 pg (29.0-33.0); MEAN CORPUSCULAR HGB CONC 33.1 g/dl (32.0-37.0); MEAN CORPUSCULAR VOLUME 86.7 fl (82.0-101.0); MEAN PLATELET VOLUME 11.4 fl (7.4-10.4); MONOCYTE # 0.4 10^3/ul (0.3-0.9); MONOCYTES % 6.8 % (0.0-11.0); NEUTROPHIL # 4.8 10^3/ul (1.6-7.5); NEUTROPHILS % 74.6 % (39.0-77.0); PLATELET COUNT 231 10^3/UL (140-415); RED BLOOD COUNT 2.86 10^6/ul (4.70-6.10); RED CELL DISTRIBUTION WIDTH 13.6 % (11.5-14.5)
[2018-06-26] MEDS: BUMETANIDE 1 MG TAB PO (06:14)
[2018-06-26 06:42] LABS: HEMOGLOBIN A1C 7.2 % (0-5.9)
[2018-06-26 07:14] LABS: ALANINE AMINOTRANSFERASE 26 IU/L (13-69); ALBUMIN 2.9 g/dl (3.3-4.9); ALBUMIN/GLOBULIN RATIO 1.07; ALKALINE PHOSPHATASE 60 IU/L (42-121); ANION GAP 10 (5-13); ASPARTATE AMINO TRANSFERASE 24 IU/L (15-46); BILIRUBIN,INDIRECT 0.2 mg/dl (0-1.1); BILIRUBIN,TOTAL 0.2 mg/dl (0.2-1.3); BLOOD UREA NITROGEN 48 mg/dl (7-20); CALCIUM 8.2 mg/dl (8.4-10.2); CARBON DIOXIDE 27 mmol/L (21-31); CHLORIDE 102 mmol/L (97-110); CREATININE 5.88 mg/dl (0.61-1.24); Estimated GFR 10 mL/min (>60); GLUCOSE 112 mg/dl (70-220); POTASSIUM 4.4 mmol/L (3.5-5.1); SODIUM 139 mmol/L (135-144); TOTAL PROTEIN 5.6 g/dl (6.1-8.1)
[2018-06-26] MEDS: INSULIN ASPART [NOVOLOG] 3 ML PEN SC ×7 (08:00→21:03)
[2018-06-26] MEDS: MULTIVIT/CA CARB/B CMPLX/FA TAB PO (08:19)
[2018-06-26] MEDS: HEPARIN 5,000 UNIT/1 ML VIAL SC ×2 (08:25→21:03)
[2018-06-26] MEDS: NIFEdipine (XL) 60 MG TAB PO (12:30)
[2018-06-26] MEDS: ATORVASTATIN 20 MG TAB PO (20:56)
[2018-06-26] MEDS: LOSARTAN 50 MG TAB PO (20:56)
[2018-06-26] MEDS: INSULIN GLARGINE [LANTus] (100 UNITS/ML) SYG SC (21:02)
[2018-06-27] MEDS: HYDROCODONE/APAP (5/325) TAB PO (02:33)
[2018-06-27] MEDS: HYDROmorphONE 0.5 MG/0.5 ML SYG IV ×3 (03:46→21:08)
[2018-06-27 05:51] LABS: ADD MAN DIFF? NO
[2018-06-27 05:57] LABS: BASOPHIL # 0.1 10^3/ul (0.0-0.1); EOSINOPHILS # 0.2 10^3/ul (0.0-0.5); EOSINOPHILS % 3.8 % (0.0-7.0); HEMATOCRIT 24.5 % (42.0-52.0); LYMPHOCYTES # 1.6 10^3/ul (0.8-2.9); LYMPHOCYTES % 31.4 % (15.0-51.0); MEAN CORPUSCULAR HEMOGLOBIN 28.2 pg (29.0-33.0); MEAN CORPUSCULAR HGB CONC 32.7 g/dl (32.0-37.0); MEAN CORPUSCULAR VOLUME 86.3 fl (82.0-101.0); MEAN PLATELET VOLUME 11.2 fl (7.4-10.4); MONOCYTE # 0.6 10^3/ul (0.3-0.9); MONOCYTES % 11.5 % (0.0-11.0); NEUTROPHIL # 2.6 10^3/ul (1.6-7.5); NEUTROPHILS % 52.1 % (39.0-77.0); PLATELET COUNT 220 10^3/UL (140-415); RED BLOOD COUNT 2.84 10^6/ul (4.70-6.10); RED CELL DISTRIBUTION WIDTH 13.6 % (11.5-14.5)
[2018-06-27 06:37] LABS: ANION GAP 6 (5-13); BLOOD UREA NITROGEN 34 mg/dl (7-20); CALCIUM 7.9 mg/dl (8.4-10.2); CARBON DIOXIDE 32 mmol/L (21-31); CHLORIDE 101 mmol/L (97-110); CREATININE 4.93 mg/dl (0.61-1.24); Estimated GFR 12 mL/min (>60); GLUCOSE 69 mg/dl (70-220); SODIUM 139 mmol/L (135-144)
[2018-06-27] MEDS: INSULIN ASPART [NOVOLOG] 3 ML PEN SC ×7 (08:00→20:59)
[2018-06-27] MEDS: MULTIVIT/CA CARB/B CMPLX/FA TAB PO (08:10)
[2018-06-27] MEDS: HEPARIN 5,000 UNIT/1 ML VIAL SC ×2 (08:27→20:59)
[2018-06-27] MEDS: LOSARTAN 50 MG TAB PO ×3 (08:47→20:51)
[2018-06-27] MEDS: NIFEdipine (XL) 60 MG TAB PO ×2 (08:47→14:06)
[2018-06-27] MEDS: BUMETANIDE 1 MG TAB PO ×2 (08:47→14:07)
[2018-06-27] MEDS: HEPARIN 1000 UNITS/ML 10 ML INJ CATHETER (13:33)
[2018-06-27] MEDS: ATORVASTATIN 20 MG TAB PO (20:52)
[2018-06-27] MEDS: INSULIN GLARGINE [LANTus] (100 UNITS/ML) SYG SC (20:59)
[2018-06-28 05:54] LABS: ADD MAN DIFF? NO
[2018-06-28 06:01] LABS: BASOPHILS % 0.8 % (0.0-2.0); EOSINOPHILS # 0.3 10^3/ul (0.0-0.5); HEMATOCRIT 24.9 % (42.0-52.0); LYMPHOCYTES # 1.5 10^3/ul (0.8-2.9); LYMPHOCYTES % 29.2 % (15.0-51.0); MEAN CORPUSCULAR HEMOGLOBIN 28.5 pg (29.0-33.0); MEAN CORPUSCULAR HGB CONC 32.1 g/dl (32.0-37.0); MEAN CORPUSCULAR VOLUME 88.6 fl (82.0-101.0); MEAN PLATELET VOLUME 11.5 fl (7.4-10.4); MONOCYTE # 0.6 10^3/ul (0.3-0.9); MONOCYTES % 11.7 % (0.0-11.0); NEUTROPHIL # 2.6 10^3/ul (1.6-7.5); NEUTROPHILS % 52.1 % (39.0-77.0); PLATELET COUNT 206 10^3/UL (140-415); RED BLOOD COUNT 2.81 10^6/ul (4.70-6.10); RED CELL DISTRIBUTION WIDTH 13.2 % (11.5-14.5)
[2018-06-28 06:21] LABS: ANION GAP 6 (5-13); BLOOD UREA NITROGEN 22 mg/dl (7-20); CARBON DIOXIDE 26 mmol/L (21-31); CHLORIDE 105 mmol/L (97-110); CREATININE 3.94 mg/dl (0.61-1.24); Estimated GFR 16 mL/min (>60); GLUCOSE 69 mg/dl (70-220); POTASSIUM 4.4 mmol/L (3.5-5.1); SODIUM 137 mmol/L (135-144)
[2018-06-28] MEDS: INSULIN ASPART [NOVOLOG] 3 ML PEN SC ×7 (08:00→21:01)
[2018-06-28] MEDS: NIFEdipine (XL) 90 MG TAB PO (08:53)
[2018-06-28] MEDS: BUMETANIDE 1 MG TAB PO (08:53)
[2018-06-28] MEDS: MULTIVIT/CA CARB/B CMPLX/FA TAB PO (08:53)
[2018-06-28] MEDS: LOSARTAN 50 MG TAB PO ×2 (08:53→20:58)
[2018-06-28] MEDS: HEPARIN 5,000 UNIT/1 ML VIAL SC ×2 (09:04→21:02)
[2018-06-28 11:01] LABS: ADD UMIC YES; UR ASCORBIC ACID NEGATIVE (NEGATIVE); UR BILIRUBIN (Dip) NEGATIVE (NEGATIVE); UR BLOOD (Dip) NEGATIVE (NEGATIVE); UR CLARITY SLIGHTLY CLOUDY (CLEAR); UR COLOR YELLOW (YELLOW); UR GLUCOSE (Dip) 3+ mg/dL (NEGATIVE); UR HYALINE CAST FEW /HPF (NONE SEEN); UR KETONES (Dip) NEGATIVE (NEGATIVE); UR LEUKOCYTE ESTERASE (Dip) NEGATIVE Leu/ul (NEGATIVE); UR MUCUS FEW /HPF (NONE SEEN); UR NITRITE (Dip) NEGATIVE (NEGATIVE); UR RBC 6 /HPF (0-5); UR SPECIFIC GRAVITY (Dip) 1.012 (1.003-1.030); UR TOTAL PROTEIN (Dip) 3+ mg/dl (NEGATIVE); UR UROBILINOGEN (Dip) NEGATIVE (NEGATIVE); UR WBC 11 /HPF (0-5)
[2018-06-28] MEDS: ATORVASTATIN 20 MG TAB PO (20:58)
[2018-06-28] MEDS: INSULIN GLARGINE [LANTus] (100 UNITS/ML) SYG SC (21:03)
[2018-06-29] MEDS: INSULIN ASPART [NOVOLOG] 3 ML PEN SC ×7 (07:50→20:38)
[2018-06-29] MEDS: NIFEdipine (XL) 90 MG TAB PO (08:58)
[2018-06-29] MEDS: MULTIVIT/CA CARB/B CMPLX/FA TAB PO (08:58)
[2018-06-29] MEDS: LOSARTAN 50 MG TAB PO ×2 (08:59→20:41)
[2018-06-29] MEDS: HEPARIN 5,000 UNIT/1 ML VIAL SC ×2 (09:04→20:40)
[2018-06-29] MEDS: BUMETANIDE 1 MG TAB PO (11:04)
[2018-06-29] MEDS: INSULIN GLARGINE [LANTus] (100 UNITS/ML) SYG SC (20:39)
[2018-06-29] MEDS: ATORVASTATIN 20 MG TAB PO (20:40)
[2018-06-30] MEDS: INSULIN ASPART [NOVOLOG] 3 ML PEN SC ×6 (07:50→17:45)
[2018-06-30] MEDS: BUMETANIDE 1 MG TAB PO (08:26)
[2018-06-30] MEDS: LOSARTAN 50 MG TAB PO (08:26)
[2018-06-30] MEDS: MULTIVIT/CA CARB/B CMPLX/FA TAB PO (08:27)
[2018-06-30] MEDS: NIFEdipine (XL) 90 MG TAB PO (08:27)
[2018-06-30] MEDS: HEPARIN 5,000 UNIT/1 ML VIAL SC (08:29)
[2018-06-30 17:06] LABS: ANION GAP 10 (5-13); BLOOD UREA NITROGEN 56 mg/dl (7-20); CALCIUM 8.4 mg/dl (8.4-10.2); CARBON DIOXIDE 24 mmol/L (21-31); CHLORIDE 101 mmol/L (97-110); CREATININE 6.62 mg/dl (0.61-1.24); Estimated GFR 9 mL/min (>60); GLUCOSE 165 mg/dl (70-220); POTASSIUM 4.7 mmol/L (3.5-5.1); SODIUM 135 mmol/L (135-144)
== END 2018-06-30 18:38 | disposition home or self-care (01) | DRG 673 ==
LOC: E/R 10:24 → MS1 06-28 21:17 → 6WM 12:23
PROC: 0JH63XZ Insertion of Tunneled Vascular Access Device into Chest Subcutaneous Tissue and Fascia, Percutaneous Approach (ICD-10-PCS; principal; 2018-06-25 15:00)
PROC: 02H633Z Insertion of Infusion Device into Right Atrium, Percutaneous Approach (ICD-10-PCS; 2018-06-25 15:00)
PROC: 5A1D70Z Performance of Urinary Filtration, Intermittent, Less than 6 Hours Per Day (ICD-10-PCS; 2018-06-25 15:14)
DX: I12.0 Hypertensive chronic kidney disease with stage 5 chronic kidney disease or end stage renal disease (principal); N18.6 End stage renal disease; I31.3 Pericardial effusion (noninflammatory); I31.9 Disease of pericardium, unspecified; E11.22 Type 2 diabetes mellitus with diabetic chronic kidney disease; E78.5 Hyperlipidemia, unspecified; E11.21 Type 2 diabetes mellitus with diabetic nephropathy; D63.1 Anemia in chronic kidney disease; E87.5 Hyperkalemia; R10.11 Right upper quadrant pain
CPT/HCPCS: 71045; 74176; 76937; 80048; 80053; 80076; 81001; 82962; 83036; 85025; 86706; 86708; 86850; 86900; 86901; 87340; 90935; 93005; 93970; 99285-25

== ENCOUNTER 2018-09-21 19:47 | Inpatient (IN) | payer OTHER ==
[2018-09-21] MEDS: morphine 4 MG/ML VIAL IV (21:09)
[2018-09-21] MEDS: ONDANSETRON 4 MG INJ IV (21:09)
[2018-09-21 21:10] LABS: ADD MAN DIFF? NO
[2018-09-21 21:26] LABS: BASOPHIL # 0.1 10^3/ul (0.0-0.1); EOSINOPHILS # 0.4 10^3/ul (0.0-0.5); EOSINOPHILS % 5.7 % (0.0-7.0); HEMATOCRIT 38.3 % (42.0-52.0); HEMOGLOBIN 12.6 g/dl (14.0-18.0); LYMPHOCYTES # 1.6 10^3/ul (0.8-2.9); LYMPHOCYTES % 22.1 % (15.0-51.0); MEAN CORPUSCULAR HGB CONC 32.9 g/dl (32.0-37.0); MEAN CORPUSCULAR VOLUME 91.2 fl (82.0-101.0); MEAN PLATELET VOLUME 11.5 fl (7.4-10.4); MONOCYTE # 0.9 10^3/ul (0.3-0.9); MONOCYTES % 11.8 % (0.0-11.0); NEUTROPHIL # 4.3 10^3/ul (1.6-7.5); NEUTROPHILS % 59.1 % (39.0-77.0); PLATELET COUNT 187 10^3/UL (140-415); RED CELL DISTRIBUTION WIDTH 13.1 % (11.5-14.5)
[2018-09-21 21:26] LABS: WHITE BLOOD COUNT 7.2 10^3/ul (4.8-10.8)
[2018-09-21 21:32] LABS: ALANINE AMINOTRANSFERASE 44 IU/L (13-69); ALBUMIN/GLOBULIN RATIO 1.33; ALKALINE PHOSPHATASE 86 IU/L (42-121); ANION GAP 9 (5-13); ASPARTATE AMINO TRANSFERASE 61 IU/L (15-46); BILIRUBIN,INDIRECT 0.2 mg/dl (0-1.1); BILIRUBIN,TOTAL 0.2 mg/dl (0.2-1.3); BLOOD UREA NITROGEN 53 mg/dl (7-20); CALCIUM 8.7 mg/dl (8.4-10.2); CARBON DIOXIDE 27 mmol/L (21-31); CHLORIDE 100 mmol/L (97-110); CREATININE 7.26 mg/dl (0.61-1.24); Estimated GFR 8 mL/min (>60); GLUCOSE 349 mg/dl (70-220); LIPASE 242 U/L (23-300); POTASSIUM 5.9 mmol/L (3.5-5.1); SODIUM 136 mmol/L (135-144)
[2018-09-21 21:43] LABS: TROPONIN-I < 0.012 ng/ml (0.000-0.120)
[2018-09-21] MEDS: HYDROmorphONE 0.5 MG/0.5 ML SYG IV (21:53)
[2018-09-22] MEDS ORDERED: NACL 0.9% 3 ML SYG IV (01:00)
[2018-09-22] MEDS: ACCU-CHEK XX (02:29)
[2018-09-22] MEDS: FAMOTIDINE 20 MG INJ IV (02:31)
[2018-09-22] MEDS: INSULIN ASPART [NOVOLOG] 3 ML PEN SC ×4 (02:32→18:24)
[2018-09-22] MEDS: ONDANSETRON 4 MG INJ IV (02:40)
[2018-09-22] MEDS: HYDROmorphONE 0.5 MG/0.5 ML SYG IV ×2 (02:41→17:18)
[2018-09-22 05:43] LABS: CHOL/HDL RATIO 2.2 RATIO; HDL CHOLESTEROL 54 mg/dl (28-71); LDL CHOLESTEROL,CALCULATED 45 mg/dl; TRIGLYCERIDES 119 mg/dl (0-149)
[2018-09-22 05:43] LABS: CHOLESTEROL 123 mg/dl (100-200)
[2018-09-22] MEDS ORDERED: PANTOPRAZOLE 40 MG INJ IV (06:00)
[2018-09-22] MEDS: NIFEdipine (XL) 90 MG TAB PO (08:17)
[2018-09-22] MEDS: CALCIUM ACETATE 667 MG CAP PO ×3 (08:17→17:17)
[2018-09-22 08:21] LABS: HEPATITIS B SURFACE ANTIGEN NEGATIVE (NEGATIVE)
[2018-09-22 12:03] LABS: ANION GAP 8 (5-13); BLOOD UREA NITROGEN 55 mg/dl (7-20); CALCIUM 8.4 mg/dl (8.4-10.2); CARBON DIOXIDE 25 mmol/L (21-31); CHLORIDE 104 mmol/L (97-110); CREATININE 7.63 mg/dl (0.61-1.24); Estimated GFR 7 mL/min (>60); GLUCOSE 170 mg/dl (70-220); POTASSIUM 5.6 mmol/L (3.5-5.1); SODIUM 137 mmol/L (135-144)
[2018-09-22] MEDS ORDERED: GLUCAGON 1 MG INJ IM (13:00)
[2018-09-22] MEDS ORDERED: GLUCOSE GEL 15 GRAM TUBE PO ×2 (13:00)
[2018-09-22] MEDS ORDERED: GLUCOSE GEL 15 GRAM TUBE BUCCAL (13:00)
[2018-09-22] MEDS ORDERED: DEXTROSE 50% 50 ML SYRINGE IV (13:00)
[2018-09-22] MEDS: METOPROLOL 25 MG TAB PO (13:15)
[2018-09-22] MEDS: ATORVASTATIN 20 MG TAB PO (21:22)
[2018-09-22] MEDS: INSULIN GLARGINE [LANTus] (100 UNITS/ML) SYG SC (21:30)
[2018-09-23] MEDS: INSULIN ASPART [NOVOLOG] 3 ML PEN SC ×4 (01:00→17:14)
[2018-09-23] MEDS: ACCU-CHEK XX (01:50)
[2018-09-23] MEDS: hydrALAzine 20 MG INJ IV ×2 (04:38→10:42)
[2018-09-23 06:43] LABS: ADD MAN DIFF? NO
[2018-09-23 06:55] LABS: WHITE BLOOD COUNT 11.1 10^3/ul (4.8-10.8)
[2018-09-23 06:55] LABS: BASOPHIL # 0.1 10^3/ul (0.0-0.1); BASOPHILS % 0.6 % (0.0-2.0); EOSINOPHILS # 0.5 10^3/ul (0.0-0.5); HEMATOCRIT 40.9 % (42.0-52.0); HEMOGLOBIN 13.3 g/dl (14.0-18.0); LYMPHOCYTES # 2.7 10^3/ul (0.8-2.9); LYMPHOCYTES % 24.1 % (15.0-51.0); MEAN CORPUSCULAR HEMOGLOBIN 29.6 pg (29.0-33.0); MEAN CORPUSCULAR HGB CONC 32.5 g/dl (32.0-37.0); MEAN CORPUSCULAR VOLUME 90.9 fl (82.0-101.0); MEAN PLATELET VOLUME 11.9 fl (7.4-10.4); MONOCYTE # 0.9 10^3/ul (0.3-0.9); MONOCYTES % 8.3 % (0.0-11.0); NEUTROPHILS % 62.7 % (39.0-77.0); PLATELET COUNT 210 10^3/UL (140-415); RED CELL DISTRIBUTION WIDTH 12.9 % (11.5-14.5)
[2018-09-23 07:05] LABS: HEMOGLOBIN A1C 8.4 % (0-5.9)
[2018-09-23 07:22] LABS: ALANINE AMINOTRANSFERASE 44 IU/L (13-69); ALBUMIN 3.9 g/dl (3.3-4.9); ALBUMIN/GLOBULIN RATIO 1.25; ALKALINE PHOSPHATASE 98 IU/L (42-121); ANION GAP 12 (5-13); ASPARTATE AMINO TRANSFERASE 40 IU/L (15-46); BILIRUBIN,INDIRECT 0.4 mg/dl (0-1.1); BILIRUBIN,TOTAL 0.4 mg/dl (0.2-1.3); BLOOD UREA NITROGEN 62 mg/dl (7-20); CALCIUM 9.4 mg/dl (8.4-10.2); CARBON DIOXIDE 23 mmol/L (21-31); CHLORIDE 105 mmol/L (97-110); CREATININE 9.32 mg/dl (0.61-1.24); Estimated GFR 6 mL/min (>60); GLUCOSE 76 mg/dl (70-220); MAGNESIUM 2.6 mg/dl (1.7-2.5); POTASSIUM 5.2 mmol/L (3.5-5.1); SODIUM 140 mmol/L (135-144)
[2018-09-23 07:23] LABS: AMYLASE 99 U/L (11-123)
[2018-09-23 07:23] LABS: LIPASE 96 U/L (23-300)
[2018-09-23] MEDS: CALCIUM ACETATE 667 MG CAP PO ×3 (08:00→17:16)
[2018-09-23] MEDS: NIFEdipine (XL) 90 MG TAB PO (10:38)
[2018-09-23] MEDS: METOPROLOL 25 MG TAB PO (10:38)
[2018-09-23] MEDS: LABETALOL 200 MG TAB PO ×2 (12:21→20:58)
[2018-09-23] MEDS: GABAPENTIN 100 MG CAP PO ×2 (12:21→20:58)
[2018-09-23] MEDS: DIPHENHYDRAMINE 25 MG CAP PO (12:21)
[2018-09-23] MEDS: METOCLOPRAMIDE 5 MG TAB PO ×2 (12:24→17:16)
[2018-09-23] MEDS: ERYTHROMYCIN BASE (DR) 250 MG CAP PO ×2 (12:24→22:14)
[2018-09-23] MEDS: BARIUM SULF 2% 450 ML BTL (BERRY SMOOTHIE) PO (18:18)
[2018-09-23] MEDS: ATORVASTATIN 20 MG TAB PO (20:58)
[2018-09-23] MEDS: INSULIN GLARGINE [LANTus] (100 UNITS/ML) SYG SC (21:12)
[2018-09-24] MEDS: HYDROmorphONE 0.5 MG/0.5 ML SYG IV ×3 (00:13→20:34)
[2018-09-24] MEDS ORDERED: INSULIN ASPART [NOVOLOG] 3 ML PEN SC (01:00)
[2018-09-24] MEDS: Insulin NOVOLOG SS MILD Algorithm (NPO/TPN/ENTERAL FEEDS) SC ×6 (01:00→20:28)
[2018-09-24] MEDS: DIPHENHYDRAMINE 25 MG CAP PO (01:13)
[2018-09-24] MEDS: ACCU-CHEK XX (01:24)
[2018-09-24] MEDS: DEXTROSE 50% 50 ML SYRINGE IV ×2 (05:57→13:32)
[2018-09-24] MEDS: PANTOPRAZOLE (EC) 40 MG TAB PO (05:57)
[2018-09-24] MEDS: ERYTHROMYCIN BASE (DR) 250 MG CAP PO ×4 (05:57→21:35)
[2018-09-24] MEDS: NIFEdipine (XL) 90 MG TAB PO (09:00)
[2018-09-24] MEDS: SOD CHLORIDE 0.9% 100 ML (09:51)
[2018-09-24] MEDS: IOHEXOL 300MG/ML 150 ML BTL (09:52)
[2018-09-24] MEDS: CALCIUM ACETATE 667 MG CAP PO ×3 (10:25→18:00)
[2018-09-24] MEDS: METOCLOPRAMIDE 5 MG TAB PO ×3 (10:26→20:27)
[2018-09-24] MEDS: LABETALOL 200 MG TAB PO ×2 (10:26→20:27)
[2018-09-24] MEDS: GABAPENTIN 100 MG CAP PO ×3 (10:26→20:27)
[2018-09-24] MEDS: DEXTROSE 5%-0.45% NACL 1,000 ML IV (15:30)
[2018-09-24] MEDS ORDERED: FENTAnyl 50 MCG/ML VIAL (17:46)
[2018-09-24] MEDS ORDERED: PROPOFOL 20 ML (17:46)
[2018-09-24] MEDS ORDERED: LIDOCAINE 100 MG SYRINGE (17:46)
[2018-09-24] MEDS ORDERED: hydrALAzine 20 MG INJ (17:46)
[2018-09-24] MEDS ORDERED: LABETALOL HCL 20MG INJ (17:52)
[2018-09-24] MEDS: ATORVASTATIN 20 MG TAB PO (20:27)
[2018-09-24] MEDS: INSULIN GLARGINE [LANTus] (100 UNITS/ML) SYG SC (20:42)
[2018-09-24] MEDS: hydrALAzine 20 MG INJ IV (21:36)
[2018-09-25] MEDS: hydrALAzine 20 MG INJ IV (01:51)
[2018-09-25] MEDS: ACCU-CHEK XX (02:00)
[2018-09-25] MEDS ORDERED: ACCU-CHEK XX (02:00)
[2018-09-25] MEDS: ERYTHROMYCIN BASE (DR) 250 MG CAP PO ×2 (06:15→14:25)
[2018-09-25] MEDS: PANTOPRAZOLE (EC) 40 MG TAB PO (06:15)
[2018-09-25] MEDS: METOCLOPRAMIDE 5 MG TAB PO ×2 (06:15→12:52)
[2018-09-25] MEDS: GABAPENTIN 100 MG CAP PO ×2 (08:32→12:52)
[2018-09-25] MEDS: CALCIUM ACETATE 667 MG CAP PO ×2 (08:33→12:52)
[2018-09-25] MEDS: LABETALOL 200 MG TAB PO (08:33)
[2018-09-25] MEDS: NIFEdipine (XL) 90 MG TAB PO (08:34)
[2018-09-25] MEDS: INSULIN ASPART [NOVOLOG] 3 ML PEN SC ×2 (08:36→12:55)
[2018-09-26 12:22] LABS: ADD UMIC YES; UR ASCORBIC ACID NEGATIVE (NEGATIVE); UR BACTERIA FEW /HPF (NONE SEEN); UR BILIRUBIN (Dip) NEGATIVE (NEGATIVE); UR BLOOD (Dip) NEGATIVE (NEGATIVE); UR CLARITY SLIGHTLY CLOUDY (CLEAR); UR COLOR YELLOW (YELLOW); UR GLUCOSE (Dip) 3+ mg/dL (NEGATIVE); UR KETONES (Dip) NEGATIVE (NEGATIVE); UR LEUKOCYTE ESTERASE (Dip) NEGATIVE Leu/ul (NEGATIVE); UR NITRITE (Dip) NEGATIVE (NEGATIVE); UR RBC 1 /HPF (0-5); UR SPECIFIC GRAVITY (Dip) 1.015 (1.003-1.030); UR TOTAL PROTEIN (Dip) 3+ mg/dl (NEGATIVE); UR UROBILINOGEN (Dip) NEGATIVE (NEGATIVE); UR WBC 3 /HPF (0-5)
== END 2018-09-25 15:00 | disposition home or self-care (01) | DRG 438 ==
LOC: 2NE 09-24 00:03 → E/R 19:47 → 6WM 23:30
PROC: 0DB68ZX Excision of Stomach, Via Natural or Artificial Opening Endoscopic, Diagnostic (ICD-10-PCS; principal; 2018-09-24 17:30)
DX: K85.90 Acute pancreatitis without necrosis or infection, unspecified (principal); N18.6 End stage renal disease; I13.2 Hypertensive heart and chronic kidney disease with heart failure and with stage 5 chronic kidney disease, or end stage renal disease; K29.70 Gastritis, unspecified, without bleeding; E11.43 Type 2 diabetes mellitus with diabetic autonomic (poly)neuropathy; E11.22 Type 2 diabetes mellitus with diabetic chronic kidney disease; Z99.2 Dependence on renal dialysis; K31.84 Gastroparesis; K20.9 Esophagitis, unspecified; Z87.891 Personal history of nicotine dependence; E87.5 Hyperkalemia; E83.39 Other disorders of phosphorus metabolism; E78.5 Hyperlipidemia, unspecified; I50.9 Heart failure, unspecified; K44.9 Diaphragmatic hernia without obstruction or gangrene
CPT/HCPCS: 36415; 71045; 74176; 74177; 78264; 80048; 80053; 80061; 81001; 82150; 82962; 83036; 83690; 83735; 84100; 84484; 85025; 87340; 88305; 88312; 90935; 93005; 96374; 96375; 99285-25